=== PATIENT | male | born 1980 | race Native Hawaiian/Other Pacific Islander ===

== ENCOUNTER 2017-02-18 20:26 | Emergency (ER) | payer BC ==
[2017-02-18 21:46] VITALS: BP 106/68; PULSE 67; RESP 16; TEMP 97.7; O2SAT 98
--- NOTE | 2017-02-18 23:14 | ED PDOC ---
HPI: General Adult Time Seen by Provider: 02/18/17 22:22 Chief Complaint (Nursing): Lower Extremity Problem/Injury History Per: Patient Additional Complaint(s): Pt. states earlier today he missed the last 2 steps going down the stairs and twisted his R ankle. Denies numbness, tingling, other injury. Past Medical History Reviewed: Historical Data, Nursing Documentation, Vital Signs Vital Signs: Last Vital Signs Temp 97.7 F 02/18/17 21:41 Pulse 67 02/18/17 21:41 Resp 16 02/18/17 21:41 BP 106/68 02/18/17 21:41 Pulse Ox 98 02/18/17 21:41 - Family History Family History: States: No Known Family Hx - Allergies Allergies/Adverse Reactions: Allergies Allergy/AdvReac Type Severity Reaction Status Date / Time Penicillins Allergy RASH Verified 02/18/17 21:46 Review of Systems ROS Statement: Except As Marked, All Systems Reviewed And Found Negative Physical Exam - Physical Exam Appears: Positive for: Well, Non-toxic, No Acute Distress Skin: Positive for: Normal Color, Warm. Negative for: Rash Pulses-Dorsalis Pedis (R): 2+ Extremity: Positive for: Other (R ankle with minimal tenderness and mild swelling without deformity; no foot, leg, or knee tenderness). Negative for: Calf Tenderness Neurologic/Psych: Positive for: Alert, Oriented - ECG O2 Sat by Pulse Oximetry: 98 - Radiology X-Ray: Interpreted by Me (R ankle x-ray) X-Ray Interpretation: No Acute Disease - Progress ED Course And Treament: R ankle x-ray ordered. Pt. was offered pain meds but refused. Ankle immobilized in aircast splint applied by histology technician. Crutches provided. Disposition - Clinical Impression Clinical Impression: Ankle sprain - Patient ED Disposition Is Patient to be Admitted: No - Disposition Referrals: [facility] [Outside] Antoine Oden MD [Staff Provider] - Disposition: Routine/Home Disposition Time: 23:15 Condition: STABLE Instructions: Ankle Sprain (ED), Ankle Stirrup Splint (ED), Crutch Instructions (ED) Forms: [facility] ED School/Work Excuse
--- NOTE | 2017-02-19 13:23 | RAD ---
PROCEDURE: Right Ankle Radiographs. HISTORY: trauma COMPARISON: None FINDINGS: BONES: Normal. No fracture. JOINTS: Normal. No osteoarthritis. Ankle mortise maintained. Talar dome intact SOFT TISSUES: Normal. OTHER FINDINGS: None. IMPRESSION: Normal right ankle radiographs.
== END 2017-02-18 23:49 | disposition home or self-care (01) ==
LOC: H.ER 20:26
DX: S99.911A Unspecified injury of right ankle, initial encounter (principal); X50.9XXA Other and unspecified overexertion or strenuous movements or postures, initial encounter; Y92.89 Other specified places as the place of occurrence of the external cause; Z88.0 Allergy status to penicillin